=== PATIENT | female | born 1985 | race Two or more races ===

== ENCOUNTER 2018-07-08 11:51 | Emergency (ER) | END 2018-07-08 13:15 | disposition home or self-care (01) ==

== ENCOUNTER 2018-07-15 16:16 | Emergency (ER) | END 2018-07-15 19:08 | disposition left against medical advice (07) ==

== ENCOUNTER 2018-12-12 17:35 | Emergency (ER) | payer MEDICAID ==
[~2018-12-12] VITALS: Ht 162.6 cm; Wt 68.0 kg
[~2018-12-12 17:35] MED LIST: ACET500C5 PO; IBUP-1542 PO; PRENAT PO
[2018-12-12 17:45] VITALS: Ht 162.6 cm; Wt 68.0 kg
[2018-12-12] MEDS ORDERED: KETOROLAC 30 MG INJ IM STA (20:43)
[2018-12-12] MEDS ORDERED: IBUP-1561 PO (22:06)
[2018-12-12] MEDS ORDERED: NITR-58 PO (22:06)
--- NOTE | 2018-12-12 22:11 | ERD ---
ER Documentation Chief Complaint Chief Complaint pt bib self with c/o pelvic pain starting this am HPI 33-year-old female presents for pelvic pain x1 day. The pain is noted to be in the bilateral pelvic area. She also states she has vaginal pain. She denies any vaginal bleeding or vaginal discharge. She does state that she have dysuria. The pain is 10 out of 10, constant, with radiation to her right leg. No prior similar symptoms. She denies fevers. Denies vomiting, diarrhea. states that she is a history of kidney stones and cholecystitis. Otherwise no other modifying factors noted. No treatments tried at home. ROS All systems reviewed and are negative except as per history of present illness. Medications Home Meds Active Scripts Ibuprofen* (Motrin*) 400 Mg Tab, 400 MG PO Q6H PRN for PAIN AND OR ELEVATED TEMP, #30 TAB Prov:HECTOR MOBLEY DO 12/12/18 Nitrofurantoin Monohyd Macrocr* (Macrobid*) 100 Mg Capsr, 100 MG PO BID for dysuria for 5 Days, #10 CAP Prov:HECTOR MOBLEY DO 12/12/18 Ibuprofen* (Motrin*) 600 Mg Tab, 600 MG PO Q6, #15 TAB Prov:DEDE SANDERSON MD 07/08/18 Acetaminophen* (Tylophen*) 500 Mg Capsule, 1 CAP PO Q6H PRN for PAIN AND OR ELEVATED TEMP, #20 CAP Prov:LETA ROMERO NP 01/24/16 Reported Medications Multivit/Min/Fol Ac/Iron/Pren* ( S*) Unknown Strength Tab, PO DAILY, TAB 01/24/16 Allergies Allergies: Coded Allergies: No Known Allergy (Verified , 02/16/10) PMhx/Soc History of gallstones, kidney stone on the right side Medical and Surgical Hx: pt denies Surgical Hx History of Surgery: Yes (2 x ) Anesthesia Reaction: No Hx Neurological Disorder: No Hx Respiratory Disorders: No Hx Cardiac Disorders: No Hx Psychiatric Problems: No Hx Miscellaneous Medical Probl: No Hx Alcohol Use: No Hx Substance Use: No Hx Tobacco Use: No Smoking Status: Never smoker FmHx Family History: No coronary disease Physical Exam Vitals Vital Signs Date Temp Pulse Resp B/P (MAP) Pulse Ox O2 O2 Flow FiO2 Time Delivery Rate 12/12/18 98.3 82 16 123/81 99 17:45 (95) Physical Exam Const: No acute distress Resp: Clear to auscultation bilaterally Cardio: Regular rate and rhythm, no murmurs Abd: Soft, non distended. Normal bowel sounds, mild bilateral pelvic tenderness palpation, no McBurney's point tenderness, no Monsivais sign, no rebound or guarding noted Skin: No petechiae or rashes Back: No midline or flank tenderness Ext: No cyanosis, or edema Neur: Awake and alert Psych: Normal Mood and Affect Results 24 hrs Laboratory Tests Test 12/12/18 20:49 12/12/18 20:50 POC Beta HCG, Qualitative NEGATIVE Urine Color YELLOW Urine Clarity SLIGHTLY CLOUDY Urine pH 6.0 Urine Specific [place] 1.018 Urine Ketones 1+ mg/dL Urine Nitrite NEGATIVE mg/dL Urine Bilirubin NEGATIVE mg/dL Urine Urobilinogen NEGATIVE mg/dL Urine Leukocyte Esterase NEGATIVE [place]/ul Urine Microscopic RBC 5 /HPF Urine Microscopic WBC 2 /HPF Urine Squamous Epithelial Cells FEW /HPF Urine Mucus MODERATE /HPF Urine Hemoglobin NEGATIVE mg/dL Urine Glucose NEGATIVE mg/dL Urine Total Protein NEGATIVE mg/dl Current Medications Medications Dose Sig/Karen Start Time Status Last (Trade) Ordered Route PRN Stop Time Admin Dose Reason Admin Ketorolac 30 mg ONCE STAT 12/12/18 DC 12/12/18 Tromethamine IM 20:43 12/12/18 21:23 (Toradol) 20:45 Procedures/MDM Medical Decision Making: Differential diagnosis includes but not limited to acute gastritis, acute gastroenteritis, appendicitis, cholecystitis, pancreatitis, nephrolithiasis, ovarian torsion, ruptured ovarian cyst Patient appeared well on physical exam. Nontoxic appearing. ED course: Patient was given Toradol. Symptoms improved with treatment. Labs: Urine was negative UA was negative for infection Imaging: Pelvic ultrasound noted to be unremarkable Despite negative UA, given symptoms of dysuria patient will be treated empirically with antibiotics And culture ordered Prescription(s): Patient given prescription for supportive medications and Macrobid. Patient advised to follow up with PCP in 1-2 days. Patient advised to return to ED for new or worsening symptoms. Patient stable on discharge from the ED. Disclaimer: Inadvertent spelling and grammatical errors are likely due to EHR/dictation software use and do not reflect on the overall quality of patient care. Also, please note that the electronic time recorded on this note does not necessarily reflect the actual time of the patient encounter. Departure Diagnosis: Primary Impression: Pelvic pain Condition: Fair Patient Instructions: Understanding Urinary Tract Infections (UTIs) Referrals: [facility] YOU HAVE RECEIVED A MEDICAL SCREENING EXAM AND THE RESULTS INDICATE THAT YOU DO NOT HAVE A CONDITION THAT REQUIRES URGENT TREATMENT IN THE EMERGENCY DEPARTMENT. FURTHER EVALUATION AND TREATMENT OF YOUR CONDITION CAN WAIT UNTIL YOU ARE SEEN IN YOUR DOCTORS OFFICE WITHIN THE NEXT 1-2 DAYS. IT IS YOUR RESPONSIBILITY TO MAKE AN APPOINTMENT FOR FOLOW-UP CARE. IF YOU HAVE A PRIMARY DOCTOR --you should call your primary doctor and schedule an appointment IF YOU DO NOT HAVE A PRIMARY DOCTOR YOU CAN CALL OUR PHYSICIAN REFERRAL HOTLINE AT IF YOU CAN NOT AFFORD TO SEE A PHYSICIAN YOU CAN CHOSE FROM THE FOLLOWING [facility] [address] [facility] [address] [facility]. [facility] [address] [facility] [address] [facility] [address] [facility]. [facility] [address] Additional Instructions: Call your primary care doctor TOMORROW for an appointment during the next 1-2 days.See the doctor sooner or return here if your condition worsens before your appointment time. HECTOR MOBLEY DO December 12, 2018 22:11
[2018-12-12 22:16] VITALS: BP 135/78; PULSE 74; RESP 18
== END 2018-12-12 22:17 | disposition home or self-care (01) ==
LOC: FTE 17:35
DX: R10.2 Pelvic and perineal pain (principal)
CPT/HCPCS: 76830; 76856; 81001; 81003; 81025; 87086; 96372; J1885; Z7502

== ENCOUNTER 2018-12-17 02:49 | Emergency (ER) | payer MEDICAID ==
[~2018-12-17] VITALS: Wt 70.2 kg
[~2018-12-17 02:49] MED LIST changes: +IBUP-1561 PO; +NITR-58 PO
[2018-12-17] MEDS ORDERED: morphine 4 MG/ML VIAL IV STA (03:27)
[2018-12-17] MEDS ORDERED: ONDANSETRON 4 MG INJ IV STA (03:27)
[2018-12-17] MEDS ORDERED: HYDR-4011 PO (05:15)
[2018-12-17] MEDS ORDERED: ONDA8TAB14 PO (05:15)
[2018-12-17] MEDS ORDERED: IBUP-1542 PO (05:15)
--- NOTE | 2018-12-17 05:19 | ERD ---
ER Documentation Chief Complaint Chief Complaint R PELVIC PAIN RADIATING TO BACK, HX OF KIDNEY STONES HPI 33-year female presents with right upper quadrant abdominal pain rating to the back worsening over the last day. She has nausea without vomiting patient has fevers. She has known history of gallstones although she states that she may have kidney stones as well. She denies urinary complaints. She denies . ROS All systems reviewed and are negative except as per history of present illness. Medications Home Meds Active Scripts Ibuprofen* (Motrin*) 600 Mg Tab, 600 MG PO Q6, #20 TAB Prov:DEDE SANDERSON MD 12/17/18 Ondansetron (Ondansetron Odt) 8 Mg Tab.rapdis, 8 MG PO Q6H PRN for NAUSEA AND/OR VOMITING, #10 TAB Prov:DEDE SANDERSON MD 12/17/18 Hydrocodone/Acetaminophen ([place] 5-325 Tablet) 1 Each Tablet, 1 TAB PO Q6H PRN for PAIN, #12 TAB Prov:DEDE SANDERSON MD 12/17/18 Ibuprofen* (Motrin*) 400 Mg Tab, 400 MG PO Q6H PRN for PAIN AND OR ELEVATED TEMP, #30 TAB Prov:HECTOR MOBLEY DO 12/12/18 Nitrofurantoin Monohyd Macrocr* (Macrobid*) 100 Mg Capsr, 100 MG PO BID for dysuria for 5 Days, #10 CAP Prov:HECTOR MOBLEY DO 12/12/18 Ibuprofen* (Motrin*) 600 Mg Tab, 600 MG PO Q6, #15 TAB Prov:DEDE SANDERSON MD 07/08/18 Acetaminophen* (Tylophen*) 500 Mg Capsule, 1 CAP PO Q6H PRN for PAIN AND OR ELEVATED TEMP, #20 CAP Prov:LETA ROMERO NP 01/24/16 Reported Medications Multivit/Min/Fol Ac/Iron/Pren* ( S*) Unknown Strength Tab, PO DAILY, TAB 01/24/16 Allergies Allergies: Coded Allergies: No Known Allergy (Verified , 02/16/10) PMhx/Soc History of Surgery: Yes (2 x ) Anesthesia Reaction: No Hx Neurological Disorder: No Hx Respiratory Disorders: No Hx Cardiac Disorders: No Hx Psychiatric Problems: No Hx Miscellaneous Medical Probl: No Hx Alcohol Use: No Hx Substance Use: No Hx Tobacco Use: No Smoking Status: Never smoker FmHx Family History: No diabetes, No coronary disease, No other Physical Exam Vitals Vital Signs Date Temp Pulse Resp B/P (MAP) Pulse Ox O2 O2 Flow FiO2 Time Delivery Rate 12/17/18 98.3 82 18 139/99 100 02:52 (112) Physical Exam Const: No acute distress. Uncomfortable due to pain. Head: Atraumatic Eyes: Normal Conjunctiva ENT: Normal External Ears, Nose and Mouth. Neck: Full range of motion. No meningismus. Resp: Clear to auscultation bilaterally Cardio: Regular rate and rhythm, no murmurs Abd: Soft, positive Monsivais sign. No tenderness McBurney's point. No rebound., non distended. Normal bowel sounds Skin: No petechiae or rashes Back: No midline or flank tenderness Ext: No cyanosis, or edema Neur: Awake and alert Psych: Normal Mood and Affect Result Diagram: 12/17/18 0344 12/17/18 0344 Results 24 hrs Laboratory Tests Test 12/17/18 03:44 12/17/18 03:56 White Blood Count 6.5 10^3/ul Red Blood Count 4.15 10^6/ul Hemoglobin 12.8 g/dl Hematocrit 38.8 % Mean Corpuscular Volume 93.5 fl Mean Corpuscular Hemoglobin 30.8 pg Mean Corpuscular Hemoglobin Concent 33.0 g/dl Red Cell Distribution Width 12.6 % Platelet Count 236 10^3/UL Mean Platelet Volume 10.1 fl Immature Granulocytes % 0.300 % Neutrophils % 55.6 % Lymphocytes % 36.6 % Monocytes % 5.7 % Eosinophils % 1.5 % Basophils % 0.3 % Nucleated Red Blood Cells % 0.0 /100WBC Immature Granulocytes # 0.020 10^3/ul Neutrophils # 3.6 10^3/ul Lymphocytes # 2.4 10^3/ul Monocytes # 0.4 10^3/ul Eosinophils # 0.1 10^3/ul Basophils # 0.0 10^3/ul Nucleated Red Blood Cells # 0.0 10^3/ul Urine Color YELLOW Urine Clarity SLIGHTLY CLOUDY Urine pH 6.0 Urine Specific [place] 1.020 Urine Ketones NEGATIVE mg/dL Urine Nitrite NEGATIVE mg/dL Urine Bilirubin NEGATIVE mg/dL Urine Urobilinogen NEGATIVE mg/dL Urine Leukocyte Esterase NEGATIVE Chio/ul Urine Microscopic RBC 2 /HPF Urine Microscopic WBC 1 /HPF Urine Squamous Epithelial Cells FEW /HPF Urine Amorphous Crystals FEW /HPF Urine Bacteria FEW /HPF Urine Hemoglobin NEGATIVE mg/dL Urine Glucose NEGATIVE mg/dL Urine Total Protein NEGATIVE mg/dl Sodium Level 142 mmol/L Potassium Level 4.0 mmol/L Chloride Level 102 mmol/L Carbon Dioxide Level 32 mmol/L Anion Gap 8 Blood Urea Nitrogen 14 mg/dl Creatinine 0.58 mg/dl Est Glomerular Filtrat Rate mL/min > 60 mL/min Glucose Level 109 mg/dl Calcium Level 9.0 mg/dl Total Bilirubin 0.2 mg/dl Direct Bilirubin 0.00 mg/dl Indirect Bilirubin 0.2 mg/dl Aspartate Amino Transf (AST/SGOT) 18 IU/L Alanine Aminotransferase (ALT/SGPT) 18 IU/L Alkaline Phosphatase 46 IU/L Total Protein 6.4 g/dl Albumin 4.0 g/dl Globulin 2.40 g/dl Albumin/Globulin Ratio 1.66 Lipase 46 U/L POC Beta HCG, Qualitative NEGATIVE Current Medications Medications Dose Sig/Karen Start Time Status Last (Trade) Ordered Route PRN Stop Time Admin Dose Reason Admin Morphine 4 mg ONCE STAT 12/17/18 DC 12/17/18 Sulfate IV 03:27 12/17/18 04:02 (morphine) 03:28 Ondansetron 4 mg ONCE STAT 12/17/18 DC 12/17/18 HCl (Zofran IV 03:27 12/17/18 03:59 Inj) 03:28 Procedures/MDM Right upper quadrant ultrasound shows gallstones without signs of cholecystitis or choledocholithiasis. CBC is normal. CMP and lipase show no acute abnormalities. Urine shows no significant acute abnormalities and hCG negative. Patient was given morphine 4 mill grams IV and Zofran 4 mill grams IV. Patient had resolution of pain and had a benign abdomen on serial exam. Patient presents with signs of biliary colic without signs of cholecystitis, choledocholithiasis, appendicitis, acute surgical abdomen. She will be treated with short course of [place], Zofran, recommendations for surgery evaluation for elective gallbladder removal, return precautions for fevers, vomiting, intractable pain, new worsening symptoms. She was advised to avoid fatty foods. The patient was stable with no new complaints during the ER course. Clinically, there is no current evidence to suggest meningitis, sepsis, acute abdomen, pneumonia, stroke, acute coronary syndrome, pulmonary embolism, aortic dissection or any other emergent condition appearing to require further evaluation or hospitalization. Patient counseled regarding my diagnostic impression and care plan. Prior to discharge all questions answered. Pt agrees with treatment plan and understands strict return precautions. Pt is instructed to follow up with primary care provider within 24-48 hours. Precautionary instr uctions provided including instructions to return to the ER if not improving or for any worsening or changing symptoms or concerns. Disclaimer: Inadvertent spelling and grammatical errors are likely due to EHR/dictation software use and do not reflect on the overall quality of patient care. Also, please note that the electronic time recorded on this note does not necessarily reflect the actual time of the patient encounter. Departure Diagnosis: Primary Impression: Biliary colic Condition: Stable Patient Instructions: Gallstones Referrals: Monika HAWK SAMUEL MD KOSARI, KAMBIZ M.D. LOMIS, THOMAS MD Additional Instructions: See surgeon for evaluation for gallbladder removal. Recheck for fevers, vomiting, worsening pain, new worsening symptoms. Avoid fatty foods. May need authorization from primary doctor for specialist visit. DEDE SANDERSON MD December 17, 2018 05:19
[2018-12-17 05:29] VITALS: BP 112/65; PULSE 50; RESP 17
== END 2018-12-17 05:30 | disposition home or self-care (01) ==
LOC: FTE 02:49
DX: K80.50 Calculus of bile duct without cholangitis or cholecystitis without obstruction (principal)
CPT/HCPCS: 36415; 76705; 80053; 81001; 81003; 81025; 83690; 85025; 96374; 96375; J2270; J2405; Z7502